=== PATIENT | female | born 1975 ===

== ENCOUNTER 2020-03-30 11:30 | Emergency (ER) | payer MEDICAID ==
[~2020-03-30] VITALS: Ht 170.2 cm; Wt 108.6 kg
[2020-03-30 11:41] VITALS: BP 152/83
--- NOTE | 2020-03-30 11:54 | PHYS DOC ---
Past Medical History Past Medical History: Hypertension Past Surgical History: Gastric Bypass Smoking Status: Never Smoker Alcohol Use: None General Adult EDM: Chief Complaint: LOWER EXT PAIN HPI: HPI: Patient is a 44-year-old otherwise healthy female presents with a 7-month history of bilateral knee pain. She states her knees throb on a daily basis. She tries to take anti-inflammatories they help to some degree but did not totally take the pain away. She has been in the emergency department before and they have given anti-inflammatories which have helped temporarily but the pain always comes back. She denies any injury to the area. There is been no swelling or redness to the joints. [] Review of Systems: Review of Systems: Constitutional: Denies fever or chills. [] Eyes: Denies change in visual acuity. [] HENT: Denies nasal congestion or sore throat. [] Respiratory: Denies cough or shortness of breath. [] Cardiovascular: Denies chest pain or edema. [] GI: Denies abdominal pain, nausea, vomiting, bloody stools or diarrhea. [] : Denies dysuria. [] Musculoskeletal: Per HPI [] Integument: Denies rash. [] Neurologic: Denies headache, focal weakness or sensory changes. [] Endocrine: Denies polyuria or polydipsia. [] Lymphatic: Denies swollen glands. [] Psychiatric: Denies depression or anxiety. [] Heart Score: Risk Factors: Risk Factors: DM, Current or recent (<one month) smoker, HTN, HLP, family history of CAD, obesity. Risk Scores: Score 0 - 3: 2.5% MACE over next 6 weeks - Discharge Home Score 4 - 6: 20.3% MACE over next 6 weeks - Admit for Clinical Observation Score 7 - 10: 72.7% MACE over next 6 weeks - Early Invasive Strategies Current Medications: Current Medications Medications (Trade) Dose Ordered Sig/Chelsea Start Time Stop Time Status Last Admin Dose Admin Lidocaine HCl (Lidocaine 1% 20ml Vial) 20 ml 1X ONCE 03/30/20 12:00 03/30/20 12:01 Methylprednisolone Acetate (DEPO-Medrol 80MG VIAL) 80 mg 1X ONCE 03/30/20 12:00 03/30/20 12:01 Allergies: Allergies: Allergies Coded Allergies Type Severity Reaction Last Updated Verified Sulfa (Sulfonamide Antibiotics) Allergy Unknown 03/30/20 Yes Physical Exam: PE: Constitutional: Well developed, well nourished, mild distress, non-toxic appearance. [] HENT: Normocephalic, atraumatic, bilateral external ears normal, oropharynx moist, no oral exudates, nose normal. [] Eyes: PERRLA, EOMI, conjunctiva normal, no discharge. [] Neck: Normal range of motion, no tenderness, supple, no stridor. [] Cardiovascular:Heart rate regular rhythm, no murmur [] Lungs & Thorax: Bilateral breath sounds clear to auscultation [] Abdomen: Bowel sounds normal, soft, no tenderness, no masses, no pulsatile masses. [] Skin: Warm, dry, no erythema, no rash. [] Back: No tenderness, no CVA tenderness. [] Extremities: Both knees have some mild swelling inside the joint space she is tender in both the medial and lateral joint spaces bilaterally there is crepitus through range of motion bilaterally [] Neurologic: Alert and oriented X 3, normal motor function, normal sensory function, no focal deficits noted. [] Psychologic: Affect normal, judgement normal, mood normal. [] Current Patient Data: Vital Signs: Vital Signs Date Time Temp Pulse Resp B/P (MAP) Pulse Ox O2 Delivery O2 Flow Rate FiO2 03/30/20 11:41 98.4 73 18 152/83 (106) 100 Room Air 98.4 EKG: EKG: [] Radiology/Procedures: Radiology/Procedures: [Bilateral knee x-ray: Negative exam as interpreted by me] Course & Med Decision Making: Course & Med Decision Making Pertinent Labs and Imaging studies reviewed. (See chart for details) [Procedure: Bilateral intra-articular knee injection 80 mg Depo-Medrol and 5 cc of 1% lidocaine were injected into each knee without difficulty and the patient experienced immediate relief. Once the needle was removed from each knee a Band-Aid was placed on each knee.] Dragon Disclaimer: Dragon Disclaimer: This electronic medical record was generated, in whole or in part, using a voice recognition dictation system. Departure Departure Impression: Primary Impression: Bilateral chronic knee pain Disposition: 01 HOME, SELF-CARE Condition: IMPROVED Referrals: UNKNOWN PCP NAME (PCP) Patient Instructions: Joint Injection, Care After, Knee Pain Additional Instructions: Make sure that you tell your physician that you had a steroid injection in both knees. You will not be able to have another injection in your knee for several months. Scripts Meloxicam (MELOXICAM) 15 Mg Tablet 1 TAB PO DAILY for knee arthritis, #30 TAB 2 Refills Prov: DONTE INIGUEZ DO 03/30/20 DONTE INIGUEZ DO Mar 30, 2020 11:54
[2020-03-30] MEDS ORDERED: methylPREDNISolone ACETATE 80 MG/ML VIAL. INT ART ONE ×2 (12:00)
[2020-03-30] MEDS ORDERED: LIDOCAINE 1% Multi-Dose 20 ML VIAL. INJ ONE (12:00)
--- NOTE | 2020-03-30 12:17 | RAD ---
Study: CR KNEE BILAT 3V Indication: Bilateral knee pain. No known injury. Comparison: None. 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 Scattered osteophyte formation. Chronic appearing mineralization projecting along the lateral margin of the lateral femoral condyle. Mineralization posterior/lateral to the tibial plateau favored loose bodies. No acute fracture. Small knee joint effusion. Right knee: More mild arthrosis relative to the left knee that exhibits a predilection for the medial femorotibial compartment. Small joint line osteophytes. A small knee joint effusion may be present. No acute fracture. Impression: 1. No acute osseous abnormality at either knee. 2. 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 There are likely loose bodies on the left. Small knee joint effusion on the left and possibly on the right as well. Electronically signed by: SUSHMA KENDRICK MD (03/30/2020 12:14 PM) [id number]
[2020-03-30] MEDS ORDERED: MELO15TA23 PO (12:18)
== END 2020-03-30 12:32 | disposition home or self-care (01) ==
LOC: ER 11:30
DX: M25.562 Pain in left knee (principal); M25.561 Pain in right knee; G89.29 Other chronic pain; I10 Essential (primary) hypertension; Z88.2 Allergy status to sulfonamides
CPT/HCPCS: 20610; 73562; 99283; J1040; J3490